=== PATIENT | female | born 1970 | race Caucasian/White ===

== ENCOUNTER 2018-09-23 11:48 | Emergency (ER) | payer BC, OTHER ==
[~2018-09-23] VITALS: Ht 144.8 cm; Wt 64.9 kg
[2018-09-23 12:57] LABS: URINE CLARITY SL HAZY; URINE COLOR YELLOW
[2018-09-23 12:58] LABS: URINE BILIRUBIN NEGATIVE (Negative); URINE BLOOD 1+ (Negative); URINE GLUCOSE-RANDOM* NEGATIVE (Negative); URINE KETONES TRACE (Negative); URINE LEUKOCYTES-REFLEX 2+ (Negative); URINE NITRITE-REFLEX NEGATIVE (Negative); URINE PROTEIN (DIPSTICK) NEGATIVE (Negative); URINE SPECIFIC GRAVITY 1.015 (1.005-1.035); URINE UROBILINOGEN 0.2 E.U./dl (0.2-1.0)
[2018-09-23 13:08] LABS: BACTERIA-REFLEX None Seen /HPF (None Seen); CASTS None Seen /LPF (None Seen); CRYSTALS None Seen /LPF (None Seen); SQUAMOUS >10 Many /LPF (0-3); URINE RBC 3-10 Few /HPF (0-2); URINE WBC-REFLEX 6-15 Few /HPF (0-5)
[2018-09-23 13:21] LABS: ABSOLUTE NEUTROPHILS 5.6 thou/uL (1.4-8.2); BASOPHILS 1.3 % (0.0-2.0); EOSINOPHILS 4.2 % (0.0-3.0); HEMATOCRIT 39.3 % (37.0-47.0); HEMOGLOBIN 12.8 gm/dL (12.0-15.0); LYMPHOCYTES 32.4 % (24.0-44.0); MCH 25.8 pg (26.0-34.0); MCHC 32.5 g/dL (28.0-37.0); MCV 79.3 fL (80.0-100.0); MONOCYTES 5.4 % (1.0-8.0); PLATELET COUNT 248 thou/uL (150-400); POLYS 56.7 % (36.0-66.0); RBC 4.95 mil/uL (4.20-5.00); RDW 14.7 % (10.5-14.5); WBC 9.8 thou/uL (4.0-11.0)
[2018-09-23 13:29] LABS: CALCIUM 9.3 mg/dL (8.5-10.1); CREATININE 0.8 mg/dL (0.6-1.0); POTASSIUM 3.9 mmol/L (3.5-5.1)
[2018-09-23 13:35] LABS: ALBUMIN 3.7 g/dL (3.4-5.0); TOTAL BILIRUBIN 0.7 mg/dL (<0.1-1.0); TOTAL PROTEIN 8.1 g/dL (6.4-8.2)
[2018-09-23] MEDS ORDERED: BACTRIM DS TAB1 EACH PO (13:50)
[2018-09-23] MEDS ORDERED: HIBICLENS118 ML TOP (13:52)
[2018-09-23 14:00] VITALS: BP 116/69
[2018-09-23] MEDS ORDERED: TRAMADOL 50 MG50 MG PO (14:04)
--- NOTE | 2018-09-24 11:59 | EKG ---
[facility] [place] [place] [address] ELECTROCARDIOGRAM REPORT Name: MANNY ALMEIDA Room #: [facility] Owens#: [id number] Admission: 09/23/18 Attend Phys: Discharge: 09/23/18 Date of : 66 Report #: [id number] THIS REPORT FOR: //name// [facility] ED Test Date: 2018-09-23 Test Time: 13:06:20 Pat Name: MANNY ALMEIDA Department: Room: Gender: F [employer] Secretary: : 1970 Requested By: Vivian Rao Order Number: [id number] MD: Chris Infante Measurements Intervals [place] Rate: 65 P: 23 OK: 158 QRS: -11 QRSD: 85 T: -36 QT: 414 QTc: 431 Interpretive Statements Sinus rhythm Poor R wave progression Nonspecific ST and T wave abnormality No previous ECG available for comparison Electronically Signed On 09-24-2018 11:59:29 [employer] by Chris Infante [email or web address] <ELECTRONICALLY SIGNED> By: hCris Infante MD, [facility] 09/24/18 1159 [id number] Chris Infante MD, FACC /EPI
== END 2018-09-23 14:00 | disposition home or self-care (01) ==
LOC: ER 11:48
PROVIDERS: Physician Assistant
DX: N76.4 Abscess of vulva (principal); N39.0 Urinary tract infection, site not specified